=== PATIENT | female | born 1995 | race American Indian/Alaskan Native ===

== ENCOUNTER 2021-07-13 06:20 | Day surgery (SDC) | payer OTHER ==
[2021-07-13] MEDS ORDERED: Scopolamine 1.5 MG Transdermal Patch ONE (07:03)
[2021-07-13] MEDS ORDERED: fentaNYL 100 MCG/2 ML SDV IVPUSH PRN (07:16)
[2021-07-13] MEDS ORDERED: Metoclopramide 10 MG/2 ML SDV IVPUSH PRN (07:16)
[2021-07-13] MEDS ORDERED: HYDROmorphone 1 MG/ML Syringe IVPUSH PRN (07:16)
[2021-07-13] MEDS ORDERED: Morphine 4 MG/ML VIAL IVPUSH PRN (07:16)
[2021-07-13] MEDS ORDERED: Naloxone 0.4 MG/ML SDV IVPUSH PRN (07:16)
[2021-07-13] MEDS ORDERED: Ondansetron 4 MG/2 ML SDV IVPUSH PRN (07:16)
[2021-07-13] MEDS ORDERED: Albuterol 0.083% 2.5 MG/3 ML Neb Soln NEB PRN (07:16)
--- NOTE | 2021-07-13 07:17 | PCM.PREANE ---
Preanesthetic Assessment - Anesthesia/Transfusion/Family Hx Anesthesia History: No Prior Anesthesia Transfusion History: No Prior Transfusion(s) - Physical Assessment Vital Signs: Last Vital Signs Temp 97.7 F 07/13/21 06:42 Pulse 85 07/13/21 06:42 Resp 14 07/13/21 06:42 BP 131/75 07/13/21 06:42 Pulse Ox 97 07/13/21 06:42 Height: 5 ft 3.5 in Weight: 191 lb - Lab Values: Laboratory Last Values WBC 8.47 K/uL (4.0-11.0) 07/13/21 06:35 RBC 4.31 M/uL (4.30-5.90) 07/13/21 06:35 Hgb 12.9 g/dL (12.0-16.0) 07/13/21 06:35 Hct 38.2 % (36.0-46.0) 07/13/21 06:35 MCV 88.6 fL (80.0-98.0) 07/13/21 06:35 MCH 29.9 pg (27.0-32.0) 07/13/21 06:35 MCHC 33.8 g/dL (31.0-37.0) 07/13/21 06:35 RDW Std Deviation 39.3 fl (28.0-62.0) 07/13/21 06:35 RDW Coeff of Andria 12 % (11.0-15.0) 07/13/21 06:35 Plt Count 438 K/uL (150-400) H 07/13/21 06:35 MPV 9.00 fL (7.40-12.00) 07/13/21 06:35 Neut % (Auto) 60.5 % (48.0-80.0) 07/13/21 06:35 Lymph % (Auto) 31.1 % (16.0-40.0) 07/13/21 06:35 Placer % (Auto) 5.0 % (0.0-15.0) 07/13/21 06:35 Eos % (Auto) 3.2 % (0.0-7.0) 07/13/21 06:35 Baso % (Auto) 0.2 % (0.0-1.5) 07/13/21 06:35 Neut # (Auto) 5.1 K/uL (1.4-5.7) 07/13/21 06:35 Lymph # (Auto) 2.6 K/uL (0.6-2.4) H 07/13/21 06:35 Placer # (Auto) 0.4 K/uL (0.0-0.8) 07/13/21 06:35 Eos # (Auto) 0.3 K/uL (0.0-0.7) 07/13/21 06:35 Baso # (Auto) 0.0 K/uL (0.0-0.1) 07/13/21 06:35 Nucleated RBC % 0.0 /100WBC 07/13/21 06:35 Nucleated RBCs # 0 K/uL 07/13/21 06:35 HCG, Qual NEGATIVE (NEG) 07/13/21 06:35 - Allergies Allergies/Adverse Reactions: Allergies Allergy/AdvReac Type Severity Reaction Status Date / Time No Known Allergies Allergy Verified 07/10/21 10:19 PreAnesthesia Questionnaire - Past Health History Medical/Surgical History: Denies Medical/Surgical History HEENT History: Reports: Other (See Below) Other HEENT History: wears glasses/contacts Cardiovascular History: Reports: None Respiratory History: Reports: None Gastrointestinal History: Reports: None Genitourinary History: Reports: None COIL PLACER History: Reports: Polycystic Ovaries Musculoskeletal History: Reports: None Neurological History: Reports: None Psychiatric History: Reports: None Endocrine/Metabolic History: Reports: Hypothyroidism, Obesity/BMI 30+ Hematologic History: Reports: None Immunologic History: Reports: None Oncologic (Cancer) History: Reports: None Dermatologic History: Reports: None - Past Surgical History Head Surgeries/Procedures: Reports: None HEENT Surgical History: Reports: None Cardiovascular Surgical History: Reports: None Respiratory Surgical History: Reports: None GI Surgical History: Reports: None Female Surgical History: Reports: None Endocrine Surgical History: Reports: None Neurological Surgical History: Reports: None Musculoskeletal Surgical History: Reports: None Oncologic Surgical History: Reports: None Dermatological Surgical History: Reports: None - SUBSTANCE USE Tobacco Use Status *Q: Never Tobacco User - HOME MEDS Home Medications: Home Meds Folic Acid 1 mg PO DAILY 07/10/21 [History] Levothyroxine Sodium [Levothyroxine] 100 mcg PO DAILY 07/10/21 [History] metFORMIN HCl [Metformin HCl] 500 mg PO BID 07/10/21 [History] norethindrone ac-eth estradioL [Loestrin 21 1-20 Tablet] 1 tab PO DAILY 07/10/21 [History] - CURRENT (IN HOUSE) MEDS Current Meds: Current Medications Discontinued Medications Scopolamine (Scopolamine 1.5 Mg Transdermal Patch) Confirm Administered Dose 1.5 mg .ROUTE .STK-MED ONE Stop: 07/13/21 07:04
[2021-07-13] MEDS ORDERED: Dexamethasone 4 MG/ML 5 ML MDV ONE (07:29)
[2021-07-13] MEDS ORDERED: Lidocaine 2% 5 ML SDV ONE (07:29)
[2021-07-13] MEDS ORDERED: Sugammadex Sodium 200 MG/2 ML VIAL ONE (07:29)
[2021-07-13] MEDS ORDERED: Propofol 200 MG/20 ML SDV ONE (07:29)
[2021-07-13] MEDS ORDERED: Rocuronium Bromide 50 MG/5 ML Syringe ONE ×2 (07:29→08:54)
[2021-07-13] MEDS ORDERED: Midazolam 1 MG/ML 2 ML SDV ONE (07:29)
[2021-07-13] MEDS ORDERED: Ketorolac 30 MG/ML SDV ONE (09:02)
[2021-07-13] MEDS ORDERED: HYDROmorphone 2 MG/ML Syringe ONE (09:14)
--- NOTE | 2021-07-13 09:18 | PCM.POSTAN ---
POST ANESTHESIA ASSESSMENT - MENTAL STATUS Mental Status: Alert, Oriented - VITAL SIGNS Vital Signs: Last Vital Signs Temp 36.5 C 07/13/21 06:42 Pulse 85 07/13/21 06:42 Resp 14 07/13/21 06:42 BP 131/75 07/13/21 06:42 Pulse Ox 97 07/13/21 06:42 - RESPIRATORY Respiratory Status: Respiratory Rate WNL, Airway Patent, O2 Saturation Stable - CARDIOVASCULAR CV Status: Pulse Rate WNL, Blood Pressure Stable - GASTROINTESTINAL GI Status: No Symptoms - POST OP HYDRATION Hydration Status: Adequate & Stable
--- NOTE | 2021-07-13 09:19 | PCM48HPAN ---
Post Anesthesia Note - EVALUATION WITHIN 48HRS OF ANESTHETIC Vital Signs in Normal Range: Yes Patient Participated in Evaluation: Yes Respiratory Function Stable: Yes Airway Patent: Yes Cardiovascular Function Stable: Yes Hydration Status Stable: Yes Pain Control Satisfactory: Yes Nausea and Vomiting Control Satisfactory: Yes Mental Status Recovered: Yes Vital Signs: Last Vital Signs Temp 36.5 C 07/13/21 06:42 Pulse 85 07/13/21 06:42 Resp 14 07/13/21 06:42 BP 131/75 07/13/21 06:42 Pulse Ox 97 07/13/21 06:42
[2021-07-13] MEDS ORDERED: Acetaminophen/oxyCODONE 325-5 MG Tab PO PRN (09:22)
[2021-07-13] MEDS ORDERED: Ketorolac 30 MG/ML SDV IVPUSH ONE (09:22)
--- NOTE | 2021-07-13 09:31 | PCM.OPNOTE ---
- General Post-Op/Procedure Note Date of Surgery/Procedure: 07/13/21 Operative Procedure(s): Laparoscopic left paratubal cystectomy Findings: Large left paratubal cyst, attached along length of fallopian tube, serous fluid Pre Op Diagnosis: 4.9cm suspected peritoneal inclusion cyst. Pelvic pain Post-Op Diagnosis: Left paratubal cyst. Pelvic pain Anesthesia Technique: General ET Tube Primary Surgeon: Casi Gambino Anesthesia Provider: Jenny Vasquez Awning Hanger: Minda Burton Pathology: Cyst fluid & cyst wall Fluid Replacement, Intraop: 1,700 EBL in mLs: 15 Complications: None Condition: Good Free Text/Narrative:: Intake & Output 07/12/21 07/13/21 07/13/21 22:59 06:59 14:59 Output Total 10 Balance -10 Esteban placed on minor bleeding of cyst wall
[2021-07-13] MEDS ORDERED: Bupivacaine 0.25% 10 ML SDV ONE (12:49)
--- NOTE | 2021-07-13 18:40 | OR ---
SURGEON: Casi Gambino MD DATE OF PROCEDURE: 07/13/2021 PREOPERATIVE DIAGNOSIS: 4.9 cm suspected peritoneal inclusion cyst. POSTOPERATIVE DIAGNOSIS: 4.9 cm left paratubal cyst. PROCEDURE: Laparoscopic left paratubal cystectomy. PRIMARY SURGEON: Casi Gambino MD BUSINESS PERFORMANCE ADVISOR: Minda Burton ANESTHESIA: General endotracheal. ESTIMATED BLOOD LOSS: 15 mL. IV FLUIDS: 1700 mL LR. PATHOLOGY: Cyst wall and cyst fluid. INDICATIONS: This is a 25-year-old who has been followed for a 4.9 cm suspected peritoneal inclusion cyst. She initially desired expectant management of the cyst, however, it did not decrease in size and she desired surgical removal. The risks, benefits, and alternatives of the procedure were reviewed with the patient prior to the surgery. DESCRIPTION OF PROCEDURE: The patient was taken to the operating room where general anesthesia was obtained without difficulty. She was placed in dorsal lithotomy position with legs in Yellofins stirrups. She was prepared and draped in normal sterile fashion. A weighted speculum was inserted into the vagina. The anterior lip of the cervix was grasped with an Allis clamp. A [email or web address] uterine manipulator was introduced. The tenaculum and speculum were removed. 0.25% bupivacaine without epinephrine was infiltrated into the infraumbilical fold. 5 mm skin incision was made in the umbilical fold. The 5 mm trocar was inserted into the abdomen under direct visualization and the pneumoperitoneum established with carbon dioxide gas. Two 5 mm trocars were inserted in the bilateral lower quadrants after infiltration with 0.25% bupivacaine. Trendelenburg position was used to facilitate moving the bowel out of the pelvis. A pelvic survey revealed normal appearing uterus and ovaries. The cyst was noted to be paratubal and attached to the tube within the mesosalpinx. The laparoscopic needle was inserted through a trocar and used to drain the paratubal cyst. The cyst fluid was sent to Pathology for evaluation, although it appeared serous. Laparoscopic scissors were used to open the cyst wall and remove the inferior half of the cyst wall. This left the area of the cyst wall attached to the fallopian to decrease risk of fallopian tubal damage. The cyst wall was noted to be oozing and the monopolar [place] and Esteban were used to obtain hemostasis. All instruments were removed from the abdomen and vagina. The pneumoperitoneum was released. The skin incisions were closed with 4-0 Monocryl in subcuticular fashion. All sponge, lap, and needle counts were correct x2. [id number] / MODL /[id number] MTDD
== END 2021-07-13 10:16 | disposition home or self-care (01) ==
LOC: MW.SDS 06:20
PROVIDERS: ATTEND Obstetrics & Gynecology
DX: N83.8 Other noninflammatory disorders of ovary, fallopian tube and broad ligament (principal); E03.9 Hypothyroidism, unspecified; E66.9 Obesity, unspecified; Z79.899 Other long term (current) drug therapy; Z79.890 Hormone replacement therapy; Z68.33 Body mass index [BMI] 33.0-33.9, adult
CPT/HCPCS: 36415; 58662; 84703; 85025; J0131; J1100; J1170; J2250; J2704; J3490; 00840; J1885